=== PATIENT | male | born 1990 | race Caucasian/White ===

== ENCOUNTER 2025-06-01 22:55 | Emergency (ER) | payer SELFPAY ==
--- OUTSIDE RECORDS SUMMARY | 2020-06-21 06:40 | XMS_ITS | Continuity of Care Document ---
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 [address], [id number] [place], [id number], [place]. tel:[phone] Referring Provider: Latosha Costa, [address] [id number] [place], [address]. tel:[phone] OFFICE/OUTPA TIENT VISIT, EST [facility], [address], [place], [id number], [place] tel:[phone] [facility] Severe alcohol use disorderBody mass index (BMI) 25.0-25.9, adultPost-tr aumatic stress disorder, chronicBipol ar disorder 0 Kt Víctor. [address], [id number] [place], [id number], [place]. tel:[phone] Referring Provider: Víctor Meraz, [address] [id number] [place], [address]. tel:[phone] [facility], [address], [place], [id number], [place] tel:[phone] [facility] Severe alcohol use disorder 0 Kt Víctor. [address], [id number] [place], [id number], [place]. tel:[phone] Referring Provider: Víctor Meraz, [address] [id number] [place], [address]. tel:[phone] PSYCH DIAGNOSTIC EVALUATION [facility], [address], [place], [id number], [place] tel:[phone] [facility] Severe alcohol use disorder 0 Oliver Little. [address], [place], [id number], [place]. tel:[phone] Referring Provider: Anabel Boyd, [address], [place], [address]. tel:[phone] [facility], [address], [place], [id number], [place] tel:[phone] [facility] Severe alcohol use disorder 0 [place]. [address], [id number] 0, [place], [id number], [place]. tel:[phone] Referring Provider: Víctor Meraz, [address] [id number] [place], [address]. tel:[phone] [facility], [address], [place], [id number], [place] tel:[phone] [facility] Severe alcohol use disorder 0 [place]. [address], [id number] 0, [place], [id number], [place]. tel:[phone] Referring Provider: Víctor Meraz, [address] [id number] [place], [address]. tel:[phone] OFFICE/OUTPA TIENT VISIT, EST [facility], [address], [place], [id number], [place] tel:[phone] [facility] Body mass index (BMI) 26.0-26.9, adultSevere alcohol use disorderPost -traumatic stress disorder, chronicBipol ar disorderPani c disorder w/ agoraphobia 0 Kt Renee. [address], [id number] 0, [place], [id number], [place]. tel:[phone] Referring Provider: Víctor Meraz, [address] [id number] [place], [address]. tel:[phone] [facility], [address], [place], [id number], [place] tel:[phone] [facility] Severe alcohol use disorder 0 [place]. [address], [id number] 0, [place], [id number], [place]. tel:[phone] Referring Provider: Víctor Meraz, [address] [id number] [place], [address]. tel:[phone] [facility], [address], [place], [id number], [place] tel:[phone] [facility] Severe alcohol use disorder Sep-3 9 Kt Renee. [address], [id number] [place], [id number], [place]. tel:[phone] Referring Provider: Víctor Meraz, [address] [id number] [place], [address]. tel:[phone] [facility], [address], [place], [id number], [place] tel:[phone] [facility] Severe alcohol use disorder 9 Kt Renee. [address], [id number] 0, [place], [id number], [place]. tel:[phone] [facility], [address], [place], [id number], [place] tel:[phone] [facility] Severe alcohol use disorder 9 Kt Renee. [address], [id number] [place], [id number], [place]. tel:[phone] Referring Provider: Víctor Meraz, [address] [id number] [place], [address]. tel:[phone] OFFICE/OUTPA TIENT VISIT, EST [facility], [address], [place], [id number], [place] tel:[phone] [facility] Body mass index (BMI) 31.0-31.9, adultPost-tr aumatic stress disorder, chronicSever e alcohol use disorder 0 9 Kt Renee. [address], [id number] 0[place], [place], [id number], . tel:[phone] Referring Provider: Víctor Kt, [address] [id number] [place], [address]. tel:[phone] [facility], [address], [place], [id number], [place] tel:[phone] [facility] Post-traumat ic stress disorder, chronic 9 Javon Hodge. [address], [place], [id number], [place]. tel:[phone] OFFICE/OUTPA TIENT VISIT, EST [facility], [facility] [address], [id number], [place] tel:[phone] [facility] Bipolar disorderPost -traumatic stress disorder, chronicPanic Disorder 8 Kt Renee. [address], [id number] [facility] [place], [id number], [place]. tel:[phone] Referring Provider: Víctor Kt, [address] [id number] [place], [address]. tel:[phone] [facility], [address], [place], [id number], [place] tel:[phone] [facility] Encounter for dental exam and cleaning w/o abnormal findings 8 Paloma Esteban. [address], [id number] [facility] [place], [id number], [place]. tel:[phone] Referring Provider: Eulalia Dow, [address] [id number] [place], [address]. tel:[phone] PSYTX PT&/FAMILY 60 MINUTES [facility], [address], [place], [id number], [place] tel:[phone] [facility] Posttraumati c Stress Disorder (includes Posttraumati c Stress Disorder for Children 6 Years and Younger)Impu lse control disorderAlco hol use disorder, moderateProb lems in relationship with spouse 8 Javon Hodge. [address] [place], [id number], [place]. tel:[phone] Referring Provider: Ayesha Alejandro, [address] [place], [address]. tel:[phone] [facility], [address] [place], [id number], [place] tel:[phone] [facility] Encounter for dental exam and cleaning w/o abnormal findings 8 Paloma Esteban. [address], [id number] [facility] [place], [id number], [place]. tel:[phone] Referring Provider: Eulalia Dow, [address] [id number] [facility] [place], [address]. tel:[phone] PSYTX PT&/FAMILY 60 MINUTES [facility], [address] [place], [id number], [place] tel:[phone] [facility] Posttraumati c Stress Disorder (includes Posttraumati c Stress Disorder for Children 6 Years and Younger)Impu lse control disorderAlco hol use disorder, moderateProb lems in relationship with spouse 8 Javon Hodge. [address] [place], [id number], [place]. tel:[phone] Referring Provider: Ayesha Alejandro, [address] [place], [address]. tel:[phone] OFFICE/OUTPA TIENT VISIT EST Telehealth [facility], [address] [place], [id number], [place] tel:[phone] [facility] Record Review (chief complaint) Post-traumat ic stress disorderAgor aphobia with panic disorderOthe r bipolar disorder 8 Major Ojeda. [address] [place] [address], [id number] 0, [place], [id number], [place]. tel:[phone] Referring Provider: Rusty Gonsalves, [address] [place] [address] 212 [id number] [place], [address]. [phone] OFFICE/OUTPA TIENT VISIT EST Tele[facility], [address], [place], [place], [id number], [place] tel:[phone] [facility] Post-traumat ic stress disorderAgor aphobia with panic disorderOthe r bipolar disorder Apr-2 8 Major Ojeda. [address] [place] [address] [address], [id number] 0, [place], [place], [id number], [place]. tel:[phone] Referring Provider: Rusty Gonsalves, [address] [place] [address] 212 [id number] [place], [address]. tel: [phone] OFFICE/OUTPA TIENT VISIT, EST [facility], [address], [place], [place], [id number], [place] tel:[phone] [facility] Post-traumat ic stress disorderAgor aphobia with panic disorderOthe r bipolar disorder Dec-0 8 Major Ojeda. [address] [place] [address] [address], [id number] 0, [place], [id number], [place]. tel: [phone] Referring Provider: Rusty Gonsalves, [address] [place] [address] 212 [id number] [place], [address]. tel:[phone] OFFICE/OUTPA TIENT VISIT, EST [facility], [address], [place], [place], [id number], [place] tel:[phone] [facility] New Patient (chief complaint) Body mass index (BMI) 24.0-24.9, adultHeadach eEncounter for adult health check-upPain in left wrist Nov- 8 Chris Perdomo. [address], [id number] 0CH, [place], [place], [id number], [place]. tel:[phone] Referring Provider: Conor Gracerenu, [id number] [place], [address]. tel:[phone] PSYCH DIAGNOSTIC EVALUATION [facility], [facility] [address], [place], [id number], [place] tel:[phone] [facility] Bipolar disorder, current episode manic w/o psychotic features, moderatePost -traumatic stress disorderCann abis use disorder, severe 8 Reid Zhang. [address] [place] [address], Suite [facility], [place], [place], [id number]. tel: [phone] Referring Provider: Vicente Mathews, [address] [place] [address], [place], [address]. tel: [phone] PSYCH DIAG EVAL W/MED SRVCS [facility], [address] [place] [address], [place], [id number], [place] tel:[phone] [facility] Body mass index (BMI) 24.0-24.9, adultPost-tr aumatic stress disorderAgor aphobia with panic disorderOthe r bipolar disorder 8 Major Ojeda. [address] [place] [address] [facility], [id number] [address] [place] [address], [id number], . tel: [phone] Referring Provider: Rusty Gonsalves, [address] [place] [address] [facility] [id number] [place], [address]. tel: [phone] PSYCH DIAGNOSTIC EVALUATION [facility], [address] [place] [address] [address], [place], [id number], [place] tel:[phone] [facility] Unspecified Mental Disorder 8 Reid Zhang. [address] [place] [address], [address] [facility], [place], [place], [id number]. tel: [phone] Referring Provider: Vicente Mathews, [address] [place] [address] [facility], [place], [address]. tel: [phone] PSYCH DIAGNOSTIC EVALUATION [facility], [address] [place], [place] [address], [place], [id number], tel:[phone] [facility] Unspecified Mental Disorder Reid Zhang. [address] [facility], [address] [facility], [place], [place], [id number]. [phone] Referring Provider: Vicente Mathews, [address] [facility] [address], [place], [address]. tel:[phone] Family History Family Member Type Diagnosis Age At Onset Problem (finding) Family history of anxie ty state Maternal aunt Problem (finding) breast cancer Problem (finding) Family history of manic-depressive state Father Problem (finding) hypertension Father Problem (finding) chest wall can cer (Cause Of ) Father Problem (finding) anxiety state Problem (finding) Family history of depre ssion Paternal grandfather Problem (finding) Diabetes mellit us Payers Payer name Insurance type Covered democrat ID Authoriza tion(s) No Information Social History Type Description Quantity Date Captured Comments Sex Male Smoking Status No Information Sexual Orientation Straight or heterosexual Gender Identity Male Chief Complaint And Reason For Visit No Information Reason For Referral Reason For Referral No Information Plan Of Treatment Date Type Action Status Goal Depression screening. Due on due Goal Diabetes screening. Due on J due Goal Td vaccine. Due on due Goal Influenza vaccine. Due on due Goal Tdap. Due on due Goal Lifestyle education regardin g diet completed Goal Td vaccine. Due on due Goal Tdap. Due on due Goal Influenza vaccine. Due on due Goal Depression screening. Due on due Goal Diabetes screening. Due on M due Goal Td vaccine. Due on due Goal Tdap. Due on due Goal Depression screening. Due on due Goal Influenza vaccine. Due on Ma due Goal Diabetes screening. Due on M due Goal Depression screening. Due on due Goal Diabetes screening. Due on A due Goal Tdap. Due on due Goal Influenza vaccine. Due on Ap due Goal Td vaccine. Due on due Goal Depression screening. Due on due Goal Td vaccine. Due on due Goal Influenza vaccine. Due on Ma due Goal Tdap. Due on due Goal Diabetes screening. Due on M due Goal Tdap. Due on due Goal Influenza vaccine. Due on due Goal Td vaccine. Due on due Goal Diabetes screening. Due on due Goal Depression screening. Due on due Goal Lifestyle education regardin g diet completed Goal Diabetes screening. Due on due Goal Td vaccine. Due on due Goal Tdap. Due on due Goal Influenza vaccine. Due on due Goal Depression screening. Due on due Goal Influenza vaccine. Due on due Goal Tdap. Due on due Goal Diabetes screening. Due on due Goal Depression screening. Due on due Goal Td vaccine. Due on due Goal Influenza vaccine. Due on due Goal Td vaccine. Due on due Goal Tdap. Due on due Goal Diabetes screening. Due on D due Goal Depression screening. Due on due Goal Diabetes screening. Due on N due Goal Influenza vaccine. Due on No due Goal Tdap. Due on due Goal Td vaccine. Due on due Goal Depression screening. Due on due Goal Tdap. Due on due Goal Diabetes screening. Due on N due Goal Depression screening. Due on due Goal Influenza vaccine. Due on No due Goal Td vaccine. Due on due [...] Influenza vaccine. Due on No due Goal Tdap. Due on due Goal Tdap. Due on due Goal Influenza vaccine. Due on due Goal Td vaccine. Due on due Goal Depression screening. Due on due Goal Depression screening. [...] Goal Td vaccine. Due on 18 due History Of Present Illness Encounter Date Complaint History Of Prese nt Illness Record Review Review from bhavik rds from emergency department at [facility]. Patient was in the hospital on August 09, 2018 for tooth fracture. He is on numerous medications which she has not told this office about. Currently taking penicillin 500 mg 1 by mouth 4 times a day, oxycodone 5 mg by mouth every 6 hours, [place] 5/325 mg every 6 hours, Fioricet 50/325/40 [...] No Information Instructions Date Instruction Additional Infor mation Lifestyle education regarding di et Related to Body mass index (BMI) 25.0-25.9, adult Giving encouragement to exercise Related to Body mass index (BMI) 25.0-25.9, adult Lifestyle education regarding di et Related [...]
[2025-06-01 23:04] VITALS: BP 129/89; PULSE 68; RESP 18; TEMP 37; O2SAT 96; BMI 26.1
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
[2025-06-01] MEDS: ondansetron 2 mg/ML SDV 2 mL 4 MG IVP (23:22)
[2025-06-01] MEDS: mupirocin oint 22 gm 1 APPLIC TOPICAL (23:22)
[2025-06-01] MEDS: HYDROmorphone 0.5 MG/0.5 ML INJ 1 MG IVP (23:23)
[2025-06-01] MEDS: iohexol 350 mg/mL 500 mL Btl (per mL) IV (23:39)
[2025-06-01 23:43] VITALS: BP 130/83; PULSE 59; RESP 16; O2SAT 95
[2025-06-01 23:46] LABS: Hematocrit 40.3 % (37-53); Hemoglobin 14.30 g/dL (11.27-16.99); Mean Corpuscular HGB Conc 35.5 g/dL (30-55); Mean Corpuscular Hemoglobin 33.6 pg (27-33); Mean Corpuscular Volume 94.6 fl (82-101); Nucleated Red Blood Cells % 0 %; Platelet Count 350 10^3/cmm (157-399); Red Blood Count 4.26 10^6/uL (3.85-5.65); White Blood Count 7.18 10^3/uL (3.29-11.43)
[2025-06-02 00:01] LABS: Alanine Aminotransferase 18 U/L (0-41); Albumin Level 4.8 g/dL (3.5-5.2); Alcohol Level 159 mg/dL (0-10); Alkaline Phosphatase 60 U/L (40-130); Anion Gap 15.3 (5-19); Aspartate Amino Transferase 21 U/L (0-40); Blood Urea Nitrogen 11 mg/dL (6-20); Calcium 8.9 mg/dL (8.5-10.5); Carbon Dioxide 26 mmol/L (22-29); Chloride 105 mmol/L (98-107); Creatinine Clr Calc Pharmacy 166.0490; Globulin 2.9 g/dL (1.3-4.6); Glucose 110 mg/dL (65-115); Osmolality Calculated 296 mOsm/kg (285-295); Potassium 3.3 mmol/L (3.5-5.1); Sodium 143 mmol/L (136-145); Total Protein 7.7 g/dL (6.6-8.7)
[2025-06-02 00:30] VITALS: PULSE 57; RESP 16; O2SAT 97
[2025-06-02] MEDS: HYDROmorphone 0.5 MG/0.5 ML INJ 1 MG IVP (00:59)
--- NOTE | 2025-06-02 01:00 | PC.NURSE ---
wounds cleansed with sterile water and betadine. right elbow dressed with bactriban and non adherent dressing. bandaged with coban. right knee cleansed and dressed with nonadherent and coban. patient tolerated well.
[2025-06-02 02:17] VITALS: BP 130/87; PULSE 60; RESP 16; O2SAT 98
== END 2025-06-02 01:55 | disposition home or self-care (01) ==
PROVIDERS: Emergency Provider Emergency Medicine; PCP Nurse Practitioner Family
DX: S80.01XA Contusion of right knee, initial encounter (principal); S50.01XA Contusion of right elbow, initial encounter; S30.0XXA Contusion of lower back and pelvis, initial encounter; V89.9XXA Person injured in unspecified vehicle accident, initial encounter
CPT/HCPCS: 36415; 70450; 71260; 72125; 73080; 73562; 74177; 80053; 80307; 85025; 96374; 96375; 96376; 99285; J1171; J2405; J9999

== ENCOUNTER 2025-06-05 09:20 | Emergency (ER) | payer SELFPAY ==
[2025-06-05 09:22] VITALS: BP 128/86; PULSE 68; TEMP 36.5; O2SAT 100; BMI 26.1
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
[2025-06-05 10:50] LABS: Add Urine Microscopic? NO
[2025-06-05 10:52] LABS: Hematocrit 43.3 % (37-53); Hemoglobin 15.10 g/dL (11.27-16.99); Mean Corpuscular HGB Conc 34.9 g/dL (30-55); Mean Corpuscular Hemoglobin 33.3 pg (27-33); Mean Corpuscular Volume 95.6 fl (82-101); Nucleated Red Blood Cells % 0 %; Platelet Count 309 10^3/cmm (157-399); Red Blood Count 4.53 10^6/uL (3.85-5.65); White Blood Count 4.84 10^3/uL (3.29-11.43)
[2025-06-05 10:55] LABS: Glucose Urine UA Negative (Normal); Nitrate Urine Negative (Negative); Specific Gravity, Urine 1.013 (1.005-1.030)
[2025-06-05 11:06] LABS: Charge for UA Resulting for Rev
[2025-06-05 11:09] LABS: Alanine Aminotransferase 15 U/L (0-41); Albumin Level 4.5 g/dL (3.5-5.2); Alkaline Phosphatase 72 U/L (40-130); Anion Gap 13.7 (5-19); Aspartate Amino Transferase 23 U/L (0-40); Blood Urea Nitrogen 8 mg/dL (6-20); Calcium 9.3 mg/dL (8.5-10.5); Carbon Dioxide 29 mmol/L (22-29); Chloride 99 mmol/L (98-107); Creatinine Clr Calc Pharmacy 142.3277; Globulin 3.1 g/dL (1.3-4.6); Glucose 114 mg/dL (65-115); Lipase 14 U/L (13-60); Osmolality Calculated 285 mOsm/kg (285-295); Potassium 3.7 mmol/L (3.5-5.1); Sodium 138 mmol/L (136-145); Total Protein 7.6 g/dL (6.6-8.7)
[2025-06-05 11:32] VITALS: PULSE 65; O2SAT 99
== END 2025-06-05 11:33 | disposition home or self-care (01) ==
PROVIDERS: Emergency Provider Family Medicine; PCP Nurse Practitioner Family
DX: M79.10 Myalgia, unspecified site (principal); V89.2XXA Person injured in unspecified motor-vehicle accident, traffic, initial encounter
CPT/HCPCS: 36415; 80053; 81003; 83690; 85025; 99283; J9999

== ENCOUNTER 2025-07-15 13:34 | Emergency (ER) | payer SELFPAY ==
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
[2025-07-15] VITALS (7 sets, daily range): BP systolic 118–124; BP diastolic 75–91; PULSE 69–76; RESP 17; TEMP 36.7; O2SAT 94–100
--- OUTSIDE RECORDS SUMMARY | 2025-07-15 13:37 | XMS_ITS | Clinical Summary ---
Author Organization [facility] Address [address] Attn: Epic Prelude ADT TACOS HAAS [address] Care Team Providers Care Arc And Gas Welder Name Role Phone Unavailable Primary Care Provider [...] mouth daily. Active naloxone (NARCAN) 4 mg/spray [place], Non-Aerosol EMERGENCY USE ONLY: Administer 1 spray [...] Encounters Date Type Department Care Team Description 06/26/2025 External Device Data [facility] ABSTRACTION Provider, Abstract 06/26/2025 External Device Data [facility] ABSTRACTION Provider, Abstract 06/26/2025 External Device Data [facility] ABSTRACTION Provider, Abstract 06/19/2025 External Device Data [facility] ABSTRACTION Provider, Abstract 06/19/2025 External Device Data [facility] ABSTRACTION Provider, Abstract 06/05/2025 External Device Data [facility] ABSTRACTION Provider, Abstract 05/08/2025 External Device Data [facility] ABSTRACTION Provider, [...] = 0.6 oz pur e alcohol) occasional Feeling Safe Answer Date Recorded Are you in a relationship wi th someone who hurts you emotionally and/or physically? No 11/24/2024 Food Insecurity Answer Date Recorded Patient needs follow up regardin 02/16/2025 Transportation Needs Answer Date Record ed Patient needs follow up regardin 02/16/2025 Housing Stability Answer Date Recorded Social/Environmental Concerns No concerns Utility Needs Answer Date Recorded Patient needs follow up regardin 02/16/2025 Sex and Gender Information Value Date Recorded Sex Assigned at Male 10/02/2024 4:08 PM CNC SUPERVISOR Legal Sex Male 3:13 AM CNC SUPERVISOR Gender Identity Male 10/02/2024 4:08 PM CNC SUPERVISOR Sexual Orientation Straight 10/02/2024 4: 08 PM CNC SUPERVISOR Last Filed Vital Signs Vital Sign Reading Time Taken Comments Blood Pressure 135/98 11/24/2024 5:56 PM CNC SUPERVISOR Pulse 72 11/24/2024 5:56 PM CNC SUPERVISOR Temperature 36.4 C (97.5 F) 11/24/2024 5:56 PM CNC SUPERVISOR Respiratory Rate 18 11/24/2024 5:56 PM CNC SUPERVISOR Oxygen Saturation 100% 11/24/2024 5:56 PM CNC SUPERVISOR Inhaled Oxygen Concentration - - Weight 82.2 kg (181 lb 3.2 oz) 11/24/2024 3:39 P M CNC SUPERVISOR Height 167.6 cm (5' 6 ) 11/24/2024 3:39 PM CNC SUPERVISOR Body Mass Index 29.25 11/24/2024 3:39 PM CNC SUPERVISOR Plan of Treatment Health Maintenance Due Date Last Done Comments Pre-Diabetes and Diabetes Screening 1990 DTAP/TDAP/TD VACCINES (5 - Tdap) 04/14/2005 04/13/2005, 02/05/1996, 01/16/1992, Additional history exists HEPATITIS B VACCINES (1 of 3 - 19+ 3-dose series) 2009 HPV VACCINES (1 - 3-dose SCD M series) 2017 INFLUENZA VACCINE (#1) 2025 Advance Directives For more information, please contact: [phone] * Full Code (Latest Code Status on File) Date Activated Date Inactivated Comments 10/02/2024 8:16 PM 10/03/2024 12:11 PM
[2025-07-15 14:00] LABS: Hematocrit 47.2 % (37-53); Hemoglobin 16.30 g/dL (11.27-16.99); Mean Corpuscular HGB Conc 34.5 g/dL (30-55); Mean Corpuscular Hemoglobin 33.3 pg (27-33); Mean Corpuscular Volume 96.3 fl (82-101); Nucleated Red Blood Cells % 0 %; Platelet Count 292 10^3/cmm (157-399); Red Blood Count 4.90 10^6/uL (3.85-5.65); White Blood Count 8.00 10^3/uL (3.29-11.43)
--- NOTE | 2025-07-15 14:03 | ED_ITS ---
HPI - Abdominal Pain 2 General: Chief Complaint: Abdominal Pain Stated Complaint: abd pain, n/v/f, black stool Time Seen by Provider: 07/15/25 13:37 Source: patient Mode of arrival: ambulatory Limitations: no limitations History of Present Illness: Patient is a 35-year-old male who presents to ED today with a complaint of upper quadrant abdominal pain beginning fairly abruptly around 430 this morning. Patient states he had awoken to get ready for work when he began noticing pain. He initially thought he might need to defecate so attempted this and noted his stool was black. He states he did have another black stool while here in the emergency department. He had taken some Pepto-Bismol prior to arrival here. Previous abdominal surgeries include umbilical hernia repair several years ago. Patient has not had any vomiting. He does feel nauseous and diaphoretic when pain becomes severe. No history of gastric ulcers. MD elicited complaint: abdominal pain Pertinent past history: none Onset (ago): hour(s) Pain Consistency: constant Location: RUQ Quality: stabbing and sharp Radiation: none Migration to: no migration Exacerbating factors: nothing Relieving factors: nothing Associated Symptoms: Reports melena and nausea; Denies chills, dysuria, fever(s), heartburn, hematemesis and vomiting Related Data Home Medications ?Medication ?Instructions ?Recorded ?Confirmed venlafaxine 37.5 mg tablet 37.5 mg PO DAILY 07/15/25 0 07/15/25 Previous Rx's ?Medication ?Instructions ?Recorded pantoprazole 40 mg tablet,delayed See Rx Instructions .Route 07/15/25 release (Protonix) .COMPLEX 4 weeks #28 tabs sucralfate 1 gram tablet (Carafate) 1 g PO TID 2 weeks #42 tabs 07/15/25 Allergies Allergy/AdvReac Type Severity Reaction Status Date / Time cephalexin (From Keflex) Allergy Unknown Verified 07/15/25 13:42 ketorolac (From Toradol) Allergy Unknown Verified 07/15/25 13:42 sumatriptan (From Imitrex) Allergy Unknown Verified 07/15/25 13:42 tramadol Allergy Unknown Verified 07/15/25 13:42 Review of Systems 2 Const: Reports: other (states he starts sweating when pain gets severe); Denies: fever(s), chills, body aches, fatigue or malaise Card: Denies: chest pain Resp: Denies: dyspnea GI: Reports: abdominal pain, nausea and melena; Denies: vomiting, hematemesis or heartburn : Denies: flank pain, difficulty urinating, dysuria, urinary frequency, urinary urgency or urinary hesitancy Musc: Denies: neck pain, back pain, extremity pain, extremity swelling, joint pain, joint swelling or joint redness Skin/Breast: Denies: rash Neuro: Denies: headache(s), numbness in extremities, weakness in extremities or sensory changes Physical Exam 2 Const: COMMON NORMALS: average body habitus, patient oriented x3, no limitations, healthy appearing, alert and well nourished GENERAL APPEARANCE: cooperative and in distress (appears uncomfortable secondary to pain) Eye: COMMON NORMALS: no scleral icterus Resp: COMMON NORMALS: normal respiratory effort and clear to auscultation bilaterally AUSCULTATION: clear to auscultation bilaterally Cardio: COMMON NORMALS: regular rate and regular rhythm RATE: regular rate RHYTHM: regular rhythm GI: COMMON NORMALS: Soft to palpation, No hepatosplenomegaly present and no masses INSPECTION: Yes normal to inspection AUSCULTATION: Yes normoactive bowel sounds PALPATION: Yes Soft to palpation, Yes Tenderness to palpation present (GI) (RUQ, epigastric), Yes Guarding due to palpation present (GI), No Rigid due to palpation and Yes No hepatosplenomegaly present : COMMON NORMALS: Yes no CVA tenderness BLADDER/KIDNEY EXAM: Yes no CVA tenderness Back/Pelvis: COMMON NORMALS: no CVA tenderness, thoracic and lumbar spine normal to inspection and no thoracic nor lumbar tenderness Extremity: COMMON NORMALS: capillary refill normal, no clubbing, cyanosis or edema, no calf tenderness and no pedal edema GENERAL: Yes normal exam except as noted Neuro: [place] COMA SCALE: document GCS findings [place] coma scale eye opening: Spontaneous [place] coma scale verbal response: Orientated [place] coma scale motor response: Obey commands [place] coma scale total score: 15 COMMON NORMALS: patient oriented x3, moves all extremities, no focal motor deficits and no sensory deficits noted SENSORIUM/ORIENTATION: Yes alert Skin: COMMON NORMALS: no rashes or lesions noted GENERAL SKIN EXAM: no rashes or lesions noted Course 2 Vital Signs: Vital signs: Vital Signs Temperature 98.1 F 07/15/25 13:36 Pulse Rate 76 07/15/25 13:36 Respiratory Rate 17 07/15/25 14:17 Blood Pressure 121/91 07/15/25 15:44 Pulse Oximetry 99 07/15/25 15:44 Oxygen Delivery Me thod Room Air 07/15/25 15:15 MDM - Abdominal Pain Medical Decision Making Patient's vital signs are stable. His blood work is unremarkable. White count is normal. LFTs/lipase are normal. UA does not appear infected. CT scan overall unremarkable-there was 1 small area to his proximal jejunum that radiologist stated could represent a localized enteritis, ileus, or normal variation. Nothing to suggest obstruction. Patient is not vomiting. He is passing stool and gas. He had declined INDY to check for blood. He was not able to give a stool sample here. He did get some relief following a GI cocktail. Will place him on Carafate/PPI and recommend a bland liquid diet with advancement as tolerated. Will get him set up with primary care for further evaluation. He may require referral to general surgery if he does not improve with conservative treatment/prescription medications. Return ED precautions given. Differential Diagnosis Likely abdominal pain Medical Records I reviewed the patient's medical records. Lab Data I reviewed the patient's lab results. 07/15/25 13:54 07/15/25 13:54 Labs/Radiology: Radiology Impressions Abdomen/Pelvis CT 07/15/25 14:20 IMPRESSION: 1. Single mildly dilated, gas-filled loop of proximal jejunum in the left upper quadrant without other evidence for obstruction. Finding could represent localized enteritis, ileus or normal variation. Continued epigastric pain should be followed with abdominal radiograph assessment to further exclude developing obstruction. 2. No other acute abnormality in the abdomen or pelvis. Laboratory Results WBC 8.00 10^3/uL (3.29-11.43) 07/15/25 13:54 RBC 4.90 10^6/uL (3.85-5.65) 07/15/25 13:54 Hgb 16.30 g/dL (11.27-16.99) 07/15/25 13:54 Hct 47.2 % (37-53) 07/15/25 13:54 MCV 96.3 fl (82-101) 07/15/25 13:54 MCH 33.3 pg (27-33) H 07/15/25 13:54 MCHC 34.5 g/dL (30-55) 07/15/25 13:54 RDW 12.4 % (12.1-15.1) 07/15/25 13:54 Plt Count 292 10^3/cmm (157-399) 07/15/25 13:54 MPV 8.1 fL (7.4-10.4) 07/15/25 13:54 Neut % (Auto) 76.5 % 07/15/25 13:54 Lymph % (Auto) 13.0 % 07/15/25 13:54 [place] % (Auto) 9.4 % 07/15/25 13:54 Eos % (Auto) 0.3 % 07/15/25 13:54 Baso % (Auto) 0.4 % 07/15/25 13:54 Neut # (Auto) 6.13 10^3/uL (1.8-7.7) 07/15/25 13:54 Lymph # (Auto) 1.0 10^3/uL (0.8-4.8) 07/15/25 13:54 [place] # (Auto) 0.8 10^3/uL (0.2-0.9) 07/15/25 13:54 Eos # (Auto) 0.0 10^3/uL (0.0-0.8) 07/15/25 13:54 Baso # (Auto) 0.0 10^3/uL (0.0-0.1) 07/15/25 13:54 Nucleated RBC % (auto) 0 % 07/15/25 13:54 Nucleated RBCs # 0.0 /100WBC 07/15/25 13:54 Sodium 135 mmol/L (136-145) L 07/15/25 13:54 Potassium 3.8 mmol/L (3.5-5.1) 07/15/25 13:54 Chloride 100 mmol/L (98-107) 07/15/25 13:54 Carbon Dioxide 26 mmol/L (22-29) 07/15/25 13:54 Anion Gap 12.8 (5-19) 07/15/25 13:54 BUN 11 mg/dL (6-20) 07/15/25 13:54 Creatinine 0.7 mg/dL (0.7-1.2) 07/15/25 13:54 GFR Calculation 128.3 mL/min (90-130) 07/15/25 13:54 Glucose 91 mg/dL (65-115) 07/15/25 13:54 Calculated Osmolality 279 mOsm/kg (285-295) L 07/15/25 13:54 Calcium 9.3 mg/dL (8.5-10.5) 07/15/25 13:54 Total Bilirubin 0.7 mg/dL (0.15-1.2) 07/15/25 13:54 AST 16 U/L (0-40) 07/15/25 13:54 ALT 11 U/L (0-41) 07/15/25 13:54 Alkaline Phosphatase 64 U/L (40-130) 07/15/25 13:54 Total Protein 7.8 g/dL (6.6-8.7) 07/15/25 13:54 Albumin 4.5 g/dL (3.5-5.2) 07/15/25 13:54 Globulin 3.3 g/dL (1.3-4.6) 07/15/25 13:54 Lipase 19 U/L (13-60) 07/15/25 13:54 Urine Color Dark yellow (Yellow) A 07/15/25 13:59 Urine Appearance Clear (CLEAR) 07/15/25 13:59 Urine pH 5.5 (5-7) 07/15/25 13:59 Ur Specific [place] 1.032 (1.005-1.030) H 07/15/25 13:59 Urine Protein Trace (Negative) A 07/15/25 13:59 Urine Glucose (UA) Negative (Normal) 07/15/25 13:59 Urine Ketones Trace (Negative) 07/15/25 13:59 Urine Blood Negative (Negative) 07/15/25 13:59 Urine Nitrate Negative (Negative) 07/15/25 13:59 Urine Bilirubin Negative (Negative) 07/15/25 13:59 Urine Urobilinogen 1.0 mg/dL (Negative) 07/15/25 13:59 Ur Leukocyte Esterase Negative (Negative) 07/15/25 13:59 Urine RBC 0-2 /hpf (0-2) 07/15/25 13:59 Urine WBC 0-5 /hpf (0-5) 07/15/25 13:59 Ur Squamous Epith Cells 0-5 /hpf (0-5) 07/15/25 13:59 Calcium Oxalate Crystal 15-25 /hpf H 07/15/25 13:59 Amorphous Sediment Not Reportable 07/15/25 13:59 Urine Bacteria None seen /hpf (NONE) 07/15/25 13:59 Hyaline Casts 0.40 /lpf 07/15/25 13:59 Urine Mucus 2+ /hpf 07/15/25 13:59 All radiology interpretation(s) finalized by discharge Discharge Plan Discharge Patient Disposition: Home Clinical Impression: Acute upper abdominal pain Condition: Stable Prescriptions: New sucralfate [Carafate] 1 gram tablet 1 g PO TID 14 Days Qty: 42 0RF pantoprazole [Protonix] 40 mg tablet,delayed release (DR/EC) See Rx Instructions .ROUTE .COMPLEX 28 Days Qty: 28 0RF Rx Instructions: 40 mg orally; Take 1 tab BID x 7 days then 1 tab daily thereafter Discontinued loperamide [Anti-Diarrhea] 2 mg Tablet 2 mg PO QID PRN (Reason: Diarrhea) bismuth subsalicylate [Pepto-Bismol] 262 mg/15 mL Suspension 524 mg PO QID hydrocodone-acetaminophen 5-325 mg tablet 1 tab PO Q8H PRN (Reason: pain) Qty: 7 0RF No Action venlafaxine 37.5 mg tablet 37.5 mg PO DAILY Discharge Orders: Discharge ED (Routine); Ordered 07/15/25 Ordered By: Elyssa Vega Referrals: Charlene Capellan MD [Primary Care Provider] Patient Instructions: Abdominal Pain (ED), Patient Portal & Britney Instructions Activity Restrictions/Additional Instructions: As we discussed, your blood work here was unremarkable. CT scan showing a possible area of enteritis (inflammation) vs ileus (slowing of your intestine) but emergent findings. We discussed doing a bland liquid diet over the next 48 hours and slowly advancing as tolerated. You may try the prescription medications to see if this helps with discomfort. I will place a case management referral to get you set up with a primary care provider for further evaluation in case symptoms persist. Print Language: Nigerian Coding Level of Care Code ED Regrinder for Marguerite Arreaga
[2025-07-15] MEDS: ondansetron 2 mg/ML SDV 2 mL 4 MG IVP (14:17)
[2025-07-15] MEDS: morphine 4 mg/mL SDV 1 mL IVP (14:17)
[2025-07-15 14:18] LABS: Alanine Aminotransferase 11 U/L (0-41); Albumin Level 4.5 g/dL (3.5-5.2); Alkaline Phosphatase 64 U/L (40-130); Anion Gap 12.8 (5-19); Aspartate Amino Transferase 16 U/L (0-40); Blood Urea Nitrogen 11 mg/dL (6-20); Calcium 9.3 mg/dL (8.5-10.5); Carbon Dioxide 26 mmol/L (22-29); Chloride 100 mmol/L (98-107); Creatinine Clr Calc Pharmacy 140.9850; Globulin 3.3 g/dL (1.3-4.6); Glucose 91 mg/dL (65-115); Lipase 19 U/L (13-60); Osmolality Calculated 279 mOsm/kg (285-295); Potassium 3.8 mmol/L (3.5-5.1); Sodium 135 mmol/L (136-145); Total Protein 7.8 g/dL (6.6-8.7)
--- NOTE | 2025-07-15 14:20 | CTR_ITS ---
PROCEDURE INFORMATION: Exam: CT Abdomen And Pelvis With Contrast Exam date and time: 07/15/2025 2:31 PM Age: 35 years old Clinical indication: Abdominal pain; Epigastric; Additional info: Upper abdominal pain TECHNIQUE: Imaging protocol: Computed tomography of the abdomen and pelvis with contrast. Radiation optimization: All CT scans at this facility use at least one of these dose optimization techniques: automated exposure control; mA and/or kV adjustment per patient size (includes targeted exams where dose is matched to clinical indication); or iterative reconstruction. Contrast material: OMNI 350; Contrast volume: 100 ml; Contrast route: INTRAVENOUS (IV); COMPARISON: CT chest abdpel w/*[id number] 06/01/2025 11:42 PM RADIATION DOSE METRICS: Total DLP (mGy-cm): 405.92 FINDINGS: Lungs: 3 mm right middle lobe and lingular nodules, requiring no follow-up. Liver: The liver is normal. No mass. Gallbladder and biliary ducts: The gallbladder is normal. There is no evidence of biliary ductal dilation. Pancreas: The pancreas is normal. No mass. Spleen: The spleen is normal. Adrenal glands: The adrenal glands are normal. Kidneys and ureters: No renal mass or hydronephrosis. Stomach and bowel: A single loop of proximal jejunum is mildly dilated with gas. No evidence for transition point in the small bowel to suggest bowel obstruction. No other bowel dilatation. No pericolonic inflammatory changes. Appendix: Normal appendix. Intraperitoneal space: No free intraperitoneal fluid or gas. Vasculature: Aortic caliber is normal. Lymph nodes: No lymph node enlargement. Urinary bladder: Bladder is collapsed, but is otherwise unremarkable. Reproductive: Visualized portions of the male reproductive tract are unremarkable, though routine CT is limited in this regard. Bones/joints: Unremarkable. No acute fracture. Soft tissues: Unremarkable. CT/CT abdomen pelvis w con* [id number] IMPRESSION: 1. Single mildly dilated, gas-filled loop of proximal jejunum in the left upper quadrant without other evidence for obstruction. Finding could represent localized enteritis, ileus or normal variation. Continued epigastric pain should be followed with abdominal radiograph assessment to further exclude developing obstruction. 2. No other acute abnormality in the abdomen or pelvis.
[2025-07-15] MEDS: lidocaine 2% viscous 15 ML, aluminum-mag hydrox-simethicon 30 ML, sucralfate oral liq 1 GM PO (14:24)
[2025-07-15 14:32] LABS: Glucose Urine UA Negative (Normal); Nitrate Urine Negative (Negative)
[2025-07-15] MEDS: iohexol 350 mg/mL 500 mL Btl (per mL) IV (14:35)
[2025-07-15 14:37] LABS: Add Urine Microscopic? YES
[2025-07-15 14:49] LABS: Specific Gravity, Urine 1.032 (1.005-1.030); UA Slide Review UA Slide Review Perf
[2025-07-15] MEDS: fentaNYL 50 mcg/mL INJ 2mL IVP (16:17)
--- NOTE | 2025-07-16 07:36 | DCPLANNER ---
Addendum entered by Ariella Ramos 07/16/25 07:36: and general surgery for er f/u Original Note: messaged mesfin to establish PCP
== END 2025-07-15 16:23 | disposition home or self-care (01) ==
PROVIDERS: Emergency Provider Physician Assistant; PCP Nurse Practitioner Family
DX: R10.10 Upper abdominal pain, unspecified (principal)
CPT/HCPCS: 36415; 74177; 80053; 81001; 83690; 85025; 96374; 96375; 99285; J2270; J2405; J3010; J7030; J9999

== ENCOUNTER 2025-07-16 12:55 | Emergency (ER) | payer SELFPAY ==
--- OUTSIDE RECORDS SUMMARY | 2020-06-21 06:40 | XMS_ITS | Continuity of Care Document ---
Author Organization [facility] Address [address] [address] Phone Care Team Providers Care Cutting And Creasing Press Operator Name Role Phone Ocstatim MATHEW Latosha Unavailable Unavailable Allergies, Adverse Reactions, [...] [facility], [address] [facility], [id number], [place] tel:[phone] [facility] [place] Encounter for dental exam and cleaning w/o abnormal findings Myriam Reina. [address], [id number] [place], [id number], [place]. tel:[phone] Referring Provider: Latosha Costa, [address] [id number] [place], [address]. tel:[phone] OFFICE/OUTPA TIENT VISIT, EST [facility], [address], [place], [id number], [place] tel:[phone] [facility] Severe alcohol use disorderBody mass index (BMI) 25.0-25.9, adultPost-tr aumatic stress disorder, chronicBipol ar disorder 0 Kt Víctor. [address], [id number] [place], [id number], [place]. tel:[phone] Referring Provider: Víctor Meraz, [address] [id number] [place], [address]. tel:[phone] [facility], [address], [place], [id number], [place] tel:[phone] [facility] Severe alcohol use disorder 0 Kt Víctor. [address], [id number] [place], [id number], [place]. tel:[phone] Referring Provider: Víctor Meraz, [address] [id number] [place], [address]. tel:[phone] PSYCH DIAGNOSTIC EVALUATION [facility], [address], [place], [id number], [place] tel:[phone] [facility] Severe alcohol use disorder 0 Oliver Little. [address], [place], [id number], [place]. tel:[phone] Referring Provider: Anabel Boyd, [address], [place], [address]. tel:[phone] [facility], [address], [place], [id number], [place] tel:[phone] [facility] Severe alcohol use disorder 0 Ktrigo Renee. [address], [id number] 0, [place], [id number], [place]. tel:[phone] Referring Provider: Víctor Meraz, [address] [id number] [place], [address]. tel:[phone] [facility], [address], [place], [id number], [place] tel:[phone] [facility] Severe alcohol use disorder 0 Stowellrigo Renee. [address], [id number] 0, [place], [id number], [place]. tel:[phone] Referring Provider: Víctor Meraz, [address] [id number] [place], [address]. tel:[phone] OFFICE/OUTPA TIENT VISIT, EST [facility], [address], [place], [id number], [place] tel:[phone] [facility] Body mass index (BMI) 26.0-26.9, adultSevere alcohol use disorderPost -traumatic stress disorder, chronicBipol ar disorderPani c disorder w/ agoraphobia 0 Kt Renee. [address], [id number] 0, [place], [id number], [place]. tel:[phone] Referring Provider: Víctor Meraz, [address] [id number] [place], [address]. tel:[phone] [facility], [address], [place], [id number], [place] tel:[phone] [facility] Severe alcohol use disorder 0 Ktmalissa Renee. [address], [id number] 0, [place], [id number], [place]. tel:[phone] Referring Provider: Víctor Meraz, [address] [id number] [place], [address]. tel:[phone] [facility], [address], [place], [id number], [place] tel:[phone] [facility] Severe alcohol use disorder Sep-3 9 Kt Renee. [address], [id number] [place], [id number], [place]. tel:[phone] Referring Provider: Víctor Meraz, [address] [id number] [place], [address]. tel:[phone] [facility], [address], [place], [id number], [place] tel:[phone] [facility] Severe alcohol use disorder 9 Kt Renee. [address], [id number] 0, [place], [id number], [place]. tel:[phone] [facility], [address], [place], [id number], [place] tel:[phone] [facility] Severe alcohol use disorder 9 Kt Renee. [address], [id number] [place], [id number], [place]. tel:[phone] Referring Provider: Víctor Meraz, [address] [id number] [place], [address]. tel:[phone] OFFICE/OUTPA TIENT VISIT, EST [facility], [address], [place], [id number], [place] tel:[phone] [facility] Body mass index (BMI) 31.0-31.9, adultPost-tr aumatic stress disorder, chronicSever e alcohol use disorder 0 9 Kt Renee. [address], [id number] 0CH, [place], [id number], . tel:[phone] Referring Provider: Víctor Kt, [address] [id number] [place], [address]. tel:[phone] [facility], [address], [place], [id number], [place] tel:[phone] [facility] Post-traumat ic stress disorder, chronic 9 Javon Hodge. [address], [place], [id number], [place]. tel:[phone] OFFICE/OUTPA TIENT VISIT, EST [facility], [facility] [address] [place], [id number], [place] tel:[phone] [facility] Bipolar disorderPost -traumatic stress disorder, chronicPanic Disorder 8 Kt Renee. [address], [id number] [facility] [place] [id number], [place]. tel:[phone] Referring Provider: Víctor Kt, [address] [id number] [place], [address]. tel:[phone] [facility], [address], [place], [id number], [place] tel:[phone] [facility] Encounter for dental exam and cleaning w/o abnormal findings 8 Paloma Esteban. [address], [id number] [facility] [place], [id number], [place]. tel:[phone] Referring Provider: Eulalia Dow, [address] [id number] [place], [address]. tel:[phone] PSYTX PT&/FAMILY 60 MINUTES [facility], [address], [place], [id number], [place] tel:[phone] [facility] Posttraumati c Stress Disorder (includes Posttraumati c Stress Disorder for Children 6 Years and Younger)Impu lse control disorderAlco hol use disorder, moderateProb lems in relationship with spouse 8 Javon Hodge. [address] [place], [id number], [place]. tel:[phone] Referring Provider: Ayesha Alejandro, [address] [place], [address]. tel:[phone] [facility], [address] [place], [id number], [place] tel:[phone] [facility] Encounter for dental exam and cleaning w/o abnormal findings 8 Paloma Esteban. [address], [id number] [facility] [place], [id number], [place]. tel:[phone] Referring Provider: Eulalia Dow, [address] [id number] [facility] [place], [address]. tel:[phone] PSYTX PT&/FAMILY 60 MINUTES [facility], [address] [place], [id number], [place] tel:[phone] [facility] Posttraumati c Stress Disorder (includes Posttraumati c Stress Disorder for Children 6 Years and Younger)Impu lse control disorderAlco hol use disorder, moderateProb lems in relationship with spouse 8 Javon Hodge. [address] [place], [id number], [place]. tel:[phone] Referring Provider: Ayesha Alejandro, [address] [place], [address]. tel:[phone] OFFICE/OUTPA TIENT VISIT EST Telehealth [facility], [address] [place], [id number], [place] tel:[phone] [facility] Record Review (chief complaint) Post-traumat ic stress disorderAgor aphobia with panic disorderOthe r bipolar disorder 8 Major Ojeda. [address] [place] [address], [id number] 0, [place], [place], [id number], [place]. tel:[phone] Referring Provider: Rusty Gonsalves, [address] [place] [address] 212 [id number] [place], [address]. [phone] OFFICE/OUTPA TIENT VISIT EST Telehealth [facility], [address], [place], [place], [id number], [place] tel:[phone] [facility] Post-traumat ic stress disorderAgor aphobia with panic disorderOthe r bipolar disorder Apr-2 8 Major Ojeda. [address] [place] [address] [address], [id number] 0, [place], [id number], [place]. tel:[phone] Referring Provider: Rusty Gonsalves, [address] [place] [address] 212 [id number] [place], [address]. tel: [phone] OFFICE/OUTPA TIENT VISIT, EST [facility], [address], [place], [id number], [place] tel:[phone] [facility] Post-traumat ic stress disorderAgor aphobia with panic disorderOthe r bipolar disorder Dec-0 8 Major Ojeda. [address] [place] [address] [address], [id number] 0, [place], [place], [id number], [place]. tel: [phone] Referring Provider: Rusty Gonsalves, [address] [place] [address] 212 [id number] [place], [address]. tel:[phone] OFFICE/OUTPA TIENT VISIT, EST [facility], [address], [place], [id number], [place] tel:[phone] [facility] New Patient (chief complaint) Body mass index (BMI) 24.0-24.9, adultHeadach eEncounter for adult health check-upPain in left wrist Nov- 8 Chris Perdomo. [address], [id number] 0CH, [place], [place], [id number], [place]. tel:[phone] Referring Provider: Conor Gracerenu, [address] [id number] [place], [address]. tel:[phone] PSYCH DIAGNOSTIC EVALUATION [facility], [facility] [address], [place], [id number], [place] tel:[phone] [facility] Bipolar disorder, current episode manic w/o psychotic features, moderatePost -traumatic stress disorderCann abis use disorder, severe 8 Reid Zhang. [address] [place] [address], [address] [facility], [place], [place], [id number]. tel: [phone] Referring Provider: Vicente Mathews, [address] [place] [address], [place], [address]. tel: [phone] PSYCH DIAG EVAL W/MED SRVCS [facility], [address] [place] [address], [place], [id number], [place] tel:[phone] [facility] Body mass index (BMI) 24.0-24.9, adultPost-tr aumatic stress disorderAgor aphobia with panic disorderOthe r bipolar disorder 8 Major Ojeda. [address] [place] [address] [facility], [id number] [address] [place] [address], [id number], . tel: [phone] Referring Provider: Rusty Gonsalves, [address] [place] [address] [facility] [id number] [place], [address]. tel: [phone] PSYCH DIAGNOSTIC EVALUATION [facility], [address] [place] [address] [address], [place], [id number], [place] tel:[phone] [facility] Unspecified Mental Disorder 8 Reid Zhang. [address] [place] [address], [address] [facility], [place], [place], [id number]. tel: [phone] Referring Provider: Vicente Mathews, [address] [place] [address] [facility], [place], [address]. tel: [phone] PSYCH DIAGNOSTIC EVALUATION [facility], [address] [place], [place] [address] Drive, [place], [id number], tel:[phone] [facility] Unspecified Mental Disorder Reid Zhang. [address] [facility], [address] [facility], [place], [place], [id number]. [phone] Referring Provider: Vicente Mathews, [address] [facility] [address], [place], [address]. tel:[phone] Family History Family Member Type Diagnosis Age [...] mellit Payers Payer name Insurance type Covered republican ID Authoriza tion(s) No Information Social History Type Description Quantity Date Captured Comments Sex Male Smoking Status No Information Sexual Orientation Straight or heterosexual Gender Identity Male Chief Complaint And Reason For Visit No Information Reason For Referral Reason For Referral No Information Plan Of Treatment Date Type Action Status Goal Tdap. Due on due Goal Depression screening. Due on due Goal Diabetes screening. Due on J due Goal Td vaccine. Due on due Goal Influenza vaccine. Due on Ju due Goal Lifestyle education regardin g diet [...] Influenza vaccine. Due on Ma due Goal Influenza vaccine. Due on Ap [...] Goal Diabetes screening. Due on due Goal Diabetes screening. Due on due Goal Depression screening. Due on due Goal Td vaccine. Due on 19 due Goal Influenza vaccine. Due on due [...] Goal Diabetes screening. Due on due Goal Influenza vaccine. [...] 18 due Goal Influenza vaccine. Due on No [...] Td vaccine. Due on 18 due Goal Lifestyle education regardin g diet [...] 5 mg by mouth every 6 hours, Pateros 5/325 mg every 6 hours, Fioricet 50/325/40 [...]
[2025-07-16 13:00] VITALS: BP 126/84; PULSE 80; RESP 17; TEMP 36.7; O2SAT 99; BMI 26.1
--- OUTSIDE RECORDS SUMMARY | 2025-07-16 13:00 | XMS_ITS | Clinical Summary ---
Author Organization [facility] Address [address] Attn: Epic Prelude ADT TACOS HAAS [id number] Care Team Providers Care Manager Regulatory Name Role Phone Unavailable Primary Care Provider [...] mouth daily. Active naloxone (NARCAN) 4 mg/spray [place], Non-Aerosol EMERGENCY USE ONLY: Administer 1 spray [...] Sex Assigned at Male 10/02/2024 4:08 PM BARGE LOADER Legal Sex Male 3:13 AM BARGE LOADER Gender Identity Male 10/02/2024 4:08 PM BARGE LOADER Sexual Orientation Straight 10/02/2024 4: 08 PM BARGE LOADER Last Filed Vital Signs Vital Sign Reading Time Taken Comments Blood Pressure 135/98 11/24/2024 5:56 PM BARGE LOADER Pulse 72 11/24/2024 5:56 PM BARGE LOADER Temperature 36.4 C (97.5 F) 11/24/2024 5:56 PM BARGE LOADER Respiratory Rate 18 11/24/2024 5:56 PM BARGE LOADER Oxygen Saturation 100% 11/24/2024 5:56 PM BARGE LOADER Inhaled Oxygen Concentration - - Weight 82.2 kg (181 lb 3.2 oz) 11/24/2024 3:39 P M BARGE LOADER Height 167.6 cm (5' 6 ) 11/24/2024 3:39 PM BARGE LOADER Body Mass Index 29.25 11/24/2024 3:39 PM BARGE LOADER Plan of Treatment Health Maintenance Due Date Last Done Comments Pre-Diabetes and Diabetes Screening 1990 DTAP/TDAP/TD VACCINES (5 - Tdap) 04/14/2005 04/13/2005, 02/05/1996, 01/16/1992, Additional history exists HEPATITIS B VACCINES (1 of 3 - 19+ 3-dose series) 2009 HPV VACCINES (1 - 3-dose SCD M series) 2017 INFLUENZA VACCINE (#1) 2025 Advance Directives For more information, please contact: [phone] * Full Code (Latest Code Status on File) Date Activated Date Inactivated Comments 10/02/2024 8:16 PM 10/03/2024 12:11 PM
[2025-07-16 13:39] LABS: Hematocrit 43.7 % (37-53); Hemoglobin 15.10 g/dL (11.27-16.99); Mean Corpuscular HGB Conc 34.6 g/dL (30-55); Mean Corpuscular Hemoglobin 33.0 pg (27-33); Mean Corpuscular Volume 95.6 fl (82-101); Nucleated Red Blood Cells % 0 %; Platelet Count 275 10^3/cmm (157-399); Red Blood Count 4.57 10^6/uL (3.85-5.65); White Blood Count 4.65 10^3/uL (3.29-11.43)
[2025-07-16 13:47] LABS: Add Urine Microscopic? NO
[2025-07-16 13:56] LABS: Alanine Aminotransferase 11 U/L (0-41); Albumin Level 4.5 g/dL (3.5-5.2); Alkaline Phosphatase 62 U/L (40-130); Anion Gap 11.9 (5-19); Aspartate Amino Transferase 16 U/L (0-40); Blood Urea Nitrogen 9 mg/dL (6-20); Calcium 9.2 mg/dL (8.5-10.5); Carbon Dioxide 29 mmol/L (22-29); Chloride 101 mmol/L (98-107); Creatinine Clr Calc Pharmacy 140.9850; Globulin 3.2 g/dL (1.3-4.6); Glucose 79 mg/dL (65-115); Lipase 18 U/L (13-60); Osmolality Calculated 284 mOsm/kg (285-295); Potassium 3.9 mmol/L (3.5-5.1); Sodium 138 mmol/L (136-145); Total Protein 7.7 g/dL (6.6-8.7)
[2025-07-16 14:01] LABS: Glucose Urine UA Negative (Normal); Nitrate Urine Negative (Negative); Specific Gravity, Urine 1.025 (1.005-1.030)
[2025-07-16 14:13] LABS: Slide Review Slide Review Perform
[2025-07-16 14:14] LABS: Charge for UA Resulting for Rev
--- NOTE | 2025-07-16 14:50 | ED_ITS ---
HPI - Abdominal Pain 2 General: Chief Complaint: Abdominal Pain Stated Complaint: abd pain Time Seen by Provider: 07/16/25 13:23 History of Present Illness: 35-year-old male presents emergency room complaining of intermittent abdominal pain. He was seen yesterday CT was unremarkable. He states he has had some dark stools as well. No hematemesis or coffee-ground emesis no john hematochezia. Denies dysuria urgency or frequency. He previously had a umbilical hernia. No other abdominal surgeries. Associated Symptoms: Denies chills, dysuria and fever(s) Related Data Previous Rx's ?Medication ?Instructions ?Recorded pantoprazole 40 mg tablet,delayed See Rx Instructions .Route 07/15/25 release (Protonix) .COMPLEX 4 weeks #28 tabs sucralfate 1 gram tablet (Carafate) 1 g PO TID 2 weeks #42 tabs 07/15/25 Allergies Allergy/AdvReac Type Severity Reaction Status Date / Time cephalexin (From Keflex) Allergy Unknown Verified 07/15/25 13:42 ketorolac (From Toradol) Allergy Unknown Verified 07/15/25 13:42 sumatriptan (From Imitrex) Allergy Unknown Verified 07/15/25 13:42 tramadol Allergy Unknown Verified 07/15/25 13:42 Review of Systems 2 Const: Denies: fever(s) or chills Card: Denies: chest pain Resp: Denies: dyspnea GI: Reports: abdominal pain : Denies: dysuria, urinary frequency or urinary urgency Musc: Denies: neck pain or back pain Skin/Breast: Denies: rash PFSH ED 2 PFSH: Surgical History History of umbilical hernia repair Physical Exam 2 Const: GENERAL APPEARANCE: cooperative ORIENTATION/CONSCIOUSNESS: Yes awake, Yes oriented to person, Yes oriented to place and Yes oriented to time HENMT: COMMON NORMALS: normocephalic, atraumatic and hearing grossly normal bilaterally HEAD & SCALP: normocephalic and atraumatic Resp: COMMON NORMALS: normal respiratory effort, No retractions, No use of accessory muscles and clear to auscultation bilaterally AUSCULTATION: clear to auscultation bilaterally Cardio: COMMON NORMALS: regular rate, regular rhythm and No murmurs present (Cardio) RATE: regular rate RHYTHM: regular rhythm GI: COMMON NORMALS: Soft to palpation and No hepatosplenomegaly present A USCULTATION: Yes normoactive bowel sounds PALPATION: Yes Soft to palpation, No Tenderness to palpation present (GI), No Guarding due to palpation present (GI) and Yes No hepatosplenomegaly present Extremity: COMMON NORMALS: normal to inspection, capillary refill normal, no clubbing, cyanosis or edema, no calf tenderness and no pedal edema Neuro: SENSORIUM/ORIENTATION: Yes oriented to person, Yes oriented to place and Yes oriented to time Skin: COMMON NORMALS: no rashes or lesions noted GENERAL SKIN EXAM: no rashes or lesions noted Course 2 Vital Signs: Vital signs: Vital Signs Temperature 98.1 F 07/16/25 13:00 Pulse Rate 76 07/16/25 15:00 Respiratory Rate 16 07/16/25 15:00 Blood Pressure 119/88 07/16/25 15:00 Pulse Oximetry 100 07/16/25 15:00 Oxygen Delivery Me thod Room Air 07/16/25 15:00 MDM - Abdominal Pain Medical Decision Making Reviewed CT done yesterday there was some enteritis this questionable ileus or early small bowel obstruction. Flat and upright of the abdomen today there is no sign of air-fluid levels. His abdomen is nonspecific he has no acute abdomen on exam no tympany no bloating. White count is normal hemoglobin is stable BUN not elevated. Will discharge patient home clear liquid diet. He does have some retained stool he is describes the pain as being intermittent spasm like suspect this is from peristalsis he may have some mild retained stool. Will discharge patient home we can use [id number] laxatives. Continue the PPI as prescribed previously. Medical Records I reviewed the patient's medical records. Lab Data I reviewed the patient's lab results. 07/16/25 13:32 07/16/25 13:32 Labs/Radiology: Radiology Impressions Chest/Abdomen X-ray 07/16/25 14:51 IMPRESSION: No acute abdominal abnormality identified. Laboratory Results WBC 4.65 10^3/uL (3.29-11.43) 07/16/25 13:32 RBC 4.57 10^6/uL (3.85-5.65) 07/16/25 13:32 Hgb 15.10 g/dL (11.27-16.99) 07/16/25 13:32 Hct 43.7 % (37-53) 07/16/25 13:32 MCV 95.6 fl (82-101) 07/16/25 13:32 MCH 33.0 pg (27-33) 07/16/25 13:32 MCHC 34.6 g/dL (30-55) 07/16/25 13:32 RDW 12.2 % (12.1-15.1) 07/16/25 13:32 Plt Count 275 10^3/cmm (157-399) 07/16/25 13:32 MPV 8.0 fL (7.4-10.4) 07/16/25 13:32 Neut % (Auto) 55.1 % 07/16/25 13:32 Lymph % (Auto) 32.4 % 07/16/25 13:32 [place] % (Auto) 10.2 % 07/16/25 13:32 Eos % (Auto) 1.3 % 07/16/25 13:32 Baso % (Auto) 0.6 % 07/16/25 13:32 Neut # (Auto) 2.56 10^3/uL (1.8-7.7) 07/16/25 13:32 Lymph # (Auto) 1.3 10^3/uL (0.8-4.8) 07/16/25 13:32 [place] # (Auto) 0.7 10^3/uL (0.2-0.9) 07/16/25 13:32 Eos # (Auto) 0.1 10^3/uL (0.0-0.8) 07/16/25 13:32 Baso # (Auto) 0.0 10^3/uL (0.0-0.1) 07/16/25 13:32 Nucleated RBC % (auto) 0 % 07/16/25 13:32 Nucleated RBCs # 0.0 /100WBC 07/16/25 13:32 Sodium 138 mmol/L (136-145) 07/16/25 13:32 Potassium 3.9 mmol/L (3.5-5.1) 07/16/25 13:32 Chloride 101 mmol/L (98-107) 07/16/25 13:32 Carbon Dioxide 29 mmol/L (22-29) 07/16/25 13:32 Anion Gap 11.9 (5-19) 07/16/25 13:32 BUN 9 mg/dL (6-20) 07/16/25 13:32 Creatinine 0.7 mg/dL (0.7-1.2) 07/16/25 13:32 GFR Calculation 128.3 mL/min (90-130) 07/16/25 13:32 Glucose 79 mg/dL (65-115) 07/16/25 13:32 Calculated Osmolality 284 mOsm/kg (285-295) L 07/16/25 13:32 Calcium 9.2 mg/dL (8.5-10.5) 07/16/25 13:32 Total Bilirubin 0.4 mg/dL (0.15-1.2) 07/16/25 13:32 AST 16 U/L (0-40) 07/16/25 13:32 ALT 11 U/L (0-41) 07/16/25 13:32 Alkaline Phosphatase 62 U/L (40-130) 07/16/25 13:32 Total Protein 7.7 g/dL (6.6-8.7) 07/16/25 13:32 Albumin 4.5 g/dL (3.5-5.2) 07/16/25 13:32 Globulin 3.2 g/dL (1.3-4.6) 07/16/25 13:32 Lipase 18 U/L (13-60) 07/16/25 13:32 Urine Color Yellow (Yellow) 07/16/25 13:41 Urine Appearance Clear (CLEAR) 07/16/25 13:41 Urine pH 5.5 (5-7) 07/16/25 13:41 Ur Specific [place] 1.025 (1.005-1.030) 07/16/25 13:41 Urine Protein Negative (Negative) 07/16/25 13:41 Urine Glucose (UA) Negative (Normal) 07/16/25 13:41 Urine Ketones Trace (Negative) 07/16/25 13:41 Urine Blood Negative (Negative) 07/16/25 13:41 Urine Nitrate Negative (Negative) 07/16/25 13:41 Urine Bilirubin Negative (Negative) 07/16/25 13:41 Urine Urobilinogen 1.0 mg/dL (Negative) 07/16/25 13:41 Ur Leukocyte Esterase Negative (Negative) 07/16/25 13:41 Amorphous Sediment Not Reportable 07/16/25 13:41 All radiology interpretation(s) finalized by discharge Discharge Plan Discharge Patient Disposition: Home Clinical Impression: Abdominal pain Condition: Stable Prescriptions: No Action sucralfate [Carafate] 1 gram tablet 1 g PO TID 14 Days Qty: 42 0RF pantoprazole [Protonix] 40 mg tablet,delayed release (DR/EC) See Rx Instructions .ROUTE .COMPLEX 28 Days Qty: 28 0RF Rx Instructions: Take 1 tablet by mouth twice daily for 7 days then 1 tablet daily thereafter. Discharge Orders: Discharge ED (Routine); Ordered 07/16/25 Ordered By: Tian Holloway Referrals: Charlene Capellan MD [Primary Care Provider] Discharge Diet: Clear Liquid Discharge Activity: Increase activity as tolerated Patient Instructions: Abdominal Pain (ED), Opioid Safety, Pain Management, Patient Portal & Britney Instructions Activity Restrictions/Additional Instructions: Thank you for choosing [facility] for your healthcare needs today. It is very important that you follow up as instructed or that you return to the Emergency Department should you have concerns or if your condition changes or worsens in any way. Emergency department visits are focused on emergent conditions, in some cases you may require further evaluation on an outpatient basis. You were seen in the emergency room with complaints of abdominal pain. You were seen in the emergency room with complaints of abdominal pain. You have been seen yesterday the CT from yesterday was reviewed. Repeat abdominal films today did not show any sign of bowel obstruction your white count electrolytes liver function kidney functions were all normal. There is a moderate amount of retained stool. Given the character of your pain with that being intermittent suspect some of this may be result of some retained stool you can try some [id number] laxatives to relieve this. (Please note that included in your discharge packet is information concerning opioid safety and pain management. This information is given to all patients were discharged from the ER regardless of their discharge diagnosis or the medicines they usually take or are prescribed.) Print Language: Yi Coding Level of Care Code ED Route Sales Delivery Driver for Marguerite Arreaga
--- NOTE | 2025-07-16 14:51 | XR_ITS ---
WS: [id number] XR acute abdomen series [id number] REASON FOR EXAM: abd pain FINDINGS: No free air or retroperitoneal air. Bowel gas pattern is unremarkable. No organomegaly or mass is identified. Lumbar spine and bony pelvis are intact without significant focal abnormality. XR/XR acute abdomen series [id number] IMPRESSION: No acute abdominal abnormality identified.
[2025-07-16 15:00] VITALS: BP 119/88; PULSE 76; RESP 16; O2SAT 100
[2025-07-16 16:42] VITALS: BP 112/78; PULSE 58; O2SAT 100
== END 2025-07-16 16:44 | disposition home or self-care (01) ==
PROVIDERS: Physician Assistant; Emergency Provider Family Medicine; PCP Nurse Practitioner Family
DX: R10.9 Unspecified abdominal pain (principal)
CPT/HCPCS: 36415; 74022; 80053; 81003; 83690; 85025; 99284

== ENCOUNTER 2025-10-09 10:52 | Emergency (ER) | payer SELFPAY ==
--- OUTSIDE RECORDS SUMMARY | 2020-06-21 05:40 | XMS_ITS | Continuity of Care Document ---
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 Role Phone Costatim MATHEW Latosha Unavailable Unavailable Allergies, Adverse Reactions, Alerts Substance Reaction Status Criticality QUETIAPINE FUMARATE Active No Infor mation SUMATRIPTAN SUCCINATE Active No Inf ormation sumatriptan Active No Information tramadol Active No Information KETOROLAC TROMETHAMINE Active No In formation ibuprofen Active No Information CEPHALEXIN MONOHYDRATE Active No In formation Medications Medication Instructions Dosage Effective Dates (start - stop) Status Comments Ativan 1 mg tablet take 1 tablet by ora l route every day as needed for Anxiety 1 MG - Active Viibryd 20 mg tablet take 1 tablet by or al route every day with food 20 MG - Active Procedures Procedure Date No Treatment Completed OFFICE/OUTPATIENT VISIT, EST Naltrexone, depot form Patient Med THER/PROPH/DIAG INJ, SC/IM PSYCH DIAGNOSTIC EVALUATION Completion Of The DLA-20 Assessment Naltrexone, depot form Patient Med THER/PROPH/DIAG INJ, SC/IM Naltrexone, depot form Patient Med THER/PROPH/DIAG INJ, SC/IM OFFICE/OUTPATIENT VISIT, EST Naltrexone, depot form Patient Med THER/PROPH/DIAG INJ, SC/IM Naltrexone, depot form Patient Med THER/PROPH/DIAG INJ, SC/IM Naltrexone, depot form Patient Med THER/PROPH/DIAG INJ, SC/IM Naltrexone, depot form Patient Med THER/PROPH/DIAG INJ, SC/IM Naltrexone, depot form Patient Med THER/PROPH/DIAG INJ, SC/IM OFFICE/OUTPATIENT VISIT, EST OFFICE/OUTPATIENT VISIT, EST Follow Up PHQ2 Screening PSYTX PT&/FAMILY 60 MINUTES Limited Evaluation Intraoral Periapical Each Additional Aug Intraoral Periapical Each Additional Aug Local Anesthesia Surgical Removal Of Erupted Tooth Requir ing Elevat PSYTX PT&/FAMILY 60 MINUTES OFFICE/OUTPATIENT VISIT EST Telehealth O OFFICE/OUTPATIENT VISIT EST Telehealth J OFFICE/OUTPATIENT VISIT, EST OFFICE/OUTPATIENT VISIT, EST PSYCH DIAGNOSTIC EVALUATION Clinic service PSYCH DIAG EVAL W/MED SRVCS PSYCH DIAGNOSTIC EVALUATION PSYCH DIAGNOSTIC EVALUATION Clinic service Advance Directives Directive Yes / No Effective Date File Name No Information Encounters Encounter Description Practice Location Reason(s) For Visit Diagnoses Date Provider Providers Copied on Encounter [facility], [address] [facility] [place], [id number], [place] tel:[phone] [facility] [place] Encounter for dental exam and cleaning w/o abnormal findings Myriam Reina. [address], [id number] [place], [id number], [place]. tel:[phone] Referring Provider: Latosha Costa, [address] [id number] [place], [address]. tel:[phone] OFFICE/OUTPA TIENT VISIT, EST [facility], [address], [place], [id number], [place] tel:[phone] [facility] Severe alcohol use disorderBody mass index (BMI) 25.0-25.9, adultPost-tr aumatic stress disorder, chronicBipol ar disorder 0 Kt Víctor. [address], [id number] [place], [id number], [place]. tel:[phone] Referring Provider: Víctor Meraz, [address] [id number] [place], [address]. tel:[phone] [facility], [address], [place], [id number], [place] tel:[phone] [facility] Severe alcohol use disorder 0 Kt Víctor. [address], [id number] [place], [id number], [place]. tel:[phone] Referring Provider: Víctor Meraz, [address] [id number] [place], [address]. tel:[phone] PSYCH DIAGNOSTIC EVALUATION [facility], [address], [place], [id number], [place] tel:[phone] [facility] Severe alcohol use disorder 0 Oliver Little. [address], [place], [id number], [place]. tel:[phone] Referring Provider: Anabel Boyd, [address], [place], [address]. tel:[phone] [facility], [address], [place], [id number], [place] tel:[phone] [facility] Severe alcohol use disorder 0 Mcduffierigo Renee. [address], [id number] 0, [place], [id number], [place]. tel:[phone] Referring Provider: Víctor Meraz, [address] [id number] [place], [address]. tel:[phone] [facility], [address], [place], [id number], [place] tel:[phone] [facility] Severe alcohol use disorder 0 Mcduffierigo Renee. [address], [id number] 0, [place], [id number], [place]. tel:[phone] Referring Provider: Víctor Meraz, [address] [id number] [place], [address]. tel:[phone] OFFICE/OUTPA TIENT VISIT, EST [facility], [address], [place], [id number], [place] tel:[phone] [facility] Body mass index (BMI) 26.0-26.9, adultSevere alcohol use disorderPost -traumatic stress disorder, chronicBipol ar disorderPani c disorder w/ agoraphobia 0 Kt Renee. [address], [id number] 0, [place], [id number], [place]. tel:[phone] Referring Provider: Víctor Meraz, [address] [id number] [place], [address]. tel:[phone] [facility], [address], [place], [id number], [place] tel:[phone] [facility] Severe alcohol use disorder 0 Mcduffiemalissa Renee. [address], [id number] 0, [place], [id number], [place]. tel:[phone] Referring Provider: Víctor Meraz, [address] [id number] [place], [address]. tel:[phone] [facility], [address], [place], [id number], [place] tel:[phone] [facility] Severe alcohol use disorder Sep-3 9 Kt Renee. [address], [id number] [place], [id number], [place]. tel:[phone] Referring Provider: Víctor Meraz, [address] [id number] [place], [address]. tel:[phone] [facility], [address], [place], [id number], [place] tel:[phone] [facility] Severe alcohol use disorder 9 Kt Renee. [address], [id number] 0, [place], [id number], [place]. tel:[phone] [facility], [address], [place], [id number], [place] tel:[phone] [facility] Severe alcohol use disorder 9 Kt Renee. [address], [id number] [place], [id number], [place]. tel:[phone] Referring Provider: Víctor Meraz, [address] [id number] [place], [address]. tel:[phone] OFFICE/OUTPA TIENT VISIT, EST [facility], [address], [place], [id number], [place] tel:[phone] [facility] Body mass index (BMI) 31.0-31.9, adultPost-tr aumatic stress disorder, chronicSever e alcohol use disorder 0 9 Kt Renee. [address], [id number] 0CH, [place], [id number], [place]. tel:[phone] Referring Provider: Víctor Kt, [address] [id number] [place], [address]. tel:[phone] [facility], [address], [place], [id number], [place] tel:[phone] [facility] Post-traumat ic stress disorder, chronic 9 Javon Hodge. [address], [place], [id number], [place]. tel:[phone] OFFICE/OUTPA TIENT VISIT, EST [facility], [address], [place], [id number], [place] tel:[phone] [facility] Bipolar disorderPost -traumatic stress disorder, chronicPanic Disorder 8 Kt Víctor. [address], [id number] [facility] [place] [place], [id number], [place]. tel:[phone] Referring Provider: Víctor Kt, [address] [id number] [place], [address]. tel:[phone] [facility], [address], [place], [id number], [place] tel:[phone] [facility] Encounter for dental exam and cleaning w/o abnormal findings 8 Paloma Esteban. [address], [id number] [facility] [place], [id number], [place]. tel:[phone] Referring Provider: Eulalia Dow, [address] [id number] [place], [address]. tel:[phone] PSYTX PT&/FAMILY 60 MINUTES [facility], [address], [place], [id number], [place] tel:[phone] [facility] Posttraumati c Stress Disorder (includes Posttraumati c Stress Disorder for Children 6 Years and Younger)Impu lse control disorderAlco hol use disorder, moderateProb lems in relationship with spouse 8 Javon Hodge. [address], [place], [id number], [place]. tel:[phone] Referring Provider: Ayesha Alejandro, [address] [place], [address]. tel:[phone] [facility], [address], [place], [id number], [place] tel:[phone] [facility] Dental Encounter for dental exam and cleaning w/o abnormal findings 8 Paloma Esteban. [address], [id number] [place], [id number], [place]. tel:[phone] Referring Provider: Eulalia Dow, [address] [id number] [place], [address]. tel:[phone] PSYTX PT&/FAMILY 60 MINUTES [facility], [address], [place], [id number], [place] tel:[phone] [facility] Posttraumati c Stress Disorder (includes Posttraumati c Stress Disorder for Children 6 Years and Younger)Impu lse control disorderAlco hol use disorder, moderateProb lems in relationship with spouse 8 Javon Hodge. [address], [id number], [place]. tel:[phone] Referring Provider: Ayesha Alejandro, [address] [place], [address]. tel:[phone] OFFICE/OUTPA TIENT VISIT EST Telehealth [facility], [address] [place], [id number], [place] tel:[phone] [facility] Record Review (chief complaint) Post-traumat ic stress disorderAgor aphobia with panic disorderOthe r bipolar disorder 8 Major Ojeda. [address] [place] [address] 212, [id number] [place], [id number], [place]. tel:[phone] Referring Provider: Rusty Gonsalves, [address] [place] [address] [id number] [place], [address]. tel: [phone] OFFICE/OUTPA TIENT VISIT EST Telehealth [facility], [address], [place], [place], [id number], [place] tel:[phone] [facility] Post-traumat ic stress disorderAgor aphobia with panic disorderOthe r bipolar disorder Apr- 8 Major Ojeda. [address] [place] [address] [address], [id number] 0, [place], [place], [id number], [place]. tel: [phone] Referring Provider: Rusty Gonsalves, [address] [place] [address] [id number] [place], [address]. tel: [phone] OFFICE/OUTPA TIENT VISIT, EST [facility], [address], [place], [place], [id number], [place] tel:[phone] [facility] Post-traumat ic stress disorderAgor aphobia with panic disorderOthe r bipolar disorder 8 Major Ojeda. [address] [place] [address] [address], [id number] 0, [place], [place], [id number], [place]. [phone] Referring Provider: Rusty Gonsalves, [address] [place] [address] 212 [id number] [place], [address]. tel: [phone] OFFICE/OUTPA TIENT VISIT, EST [facility], [address], [place], [place], [id number], [place] tel:[phone] [facility] New Patient (chief complaint) Body mass index (BMI) 24.0-24.9, adultHeadach eEncounter for adult health check-upPain in left wrist Nov-0 8 Chris Perdomo. [address], [id number] 0CH, [place], [place], [id number], [place]. [phone] Referring Provider: Conor Perez, [address] [id number] [facility] [place], [address]. tel:[phone] PSYCH DIAGNOSTIC EVALUATION [facility], [facility] [facility] [address], [place], [id number], [place] tel:[phone] [facility] Bipolar disorder, current episode manic w/o psychotic features, moderatePost -traumatic stress disorderCann abis use disorder, severe Fe-0 8 Reid Zhang. [address] [place] [address], Suite [facility], [place], [place], [id number]. tel: [phone] Referring Provider: Vicente Mathews, [address] [place] [address], [place], [address]. tel: [phone] PSYCH DIAG EVAL W/MED SRVCS [facility], [address] [place] [address], [place], [id number], [place] tel:[phone] [facility] Body mass index (BMI) 24.0-24.9, adultPost-tr aumatic stress disorderAgor aphobia with panic disorderOthe r bipolar disorder 8 Major Ojeda. [address] [place] [address], [id number] [address] [place] [address], [id number], . tel: [phone] Referring Provider: Rusty Gonsalves, [address] [place] [address] [id number] [place], [address]. tel: [phone] PSYCH DIAGNOSTIC EVALUATION [facility], [address] [place] [address] ns [facility], [place], [id number], [place] tel:[phone] [facility] Unspecified Mental Disorder 8 Reid Zhang. [address] [place] [address], [place] [address], [place], [id number]. tel: [phone] Referring Provider: Vicente Mathews, [address] [place] [address], [place], [address]. tel: [phone] PSYCH DIAGNOSTIC EVALUATION [facility], [address] [place], [place] [address] ns [place], [place], [id number], tel:[phone] [facility] Unspecified Mental Disorder [address] [facility], [address] [facility], [place], [place], [id number]. tel:[phone] Referring Provider: Vicente Mathews, [address] [facility] [address], [place], [address]. tel:[phone] Family History Family Member Type Diagnosis Age At Onset Problem (finding) Family history of anxie ty state Maternal aunt Problem (finding) breast cancer Problem (finding) Family history of manic-depressive state Father Problem (finding) hypertension Father Problem (finding) chest wall can cer (Cause Of ) Father Problem (finding) anxiety state Problem (finding) Family history of depre ssion Paternal grandfather Problem (finding) Diabetes mellit Payers Payer name Insurance type Covered libertarian ID Authoriza tion(s) No Information Social History Type Description Quantity Date Captured Comments Sex Male Smoking Status No Information Sexual Orientation Straight or heterosexual Gender Identity Male Chief Complaint And Reason For Visit No Information Reason For Referral Reason For Referral No Information Plan Of Treatment Date Type Action Status Goal Influenza vaccine. Due on due Goal Tdap. Due on due Goal Td vaccine. Due on due Goal Diabetes screening. Due on due Goal Depression screening. Due on due Goal Lifestyle education regardin g diet completed Goal Depression screening. Due on due Goal Td vaccine. Due on due Goal Diabetes screening. Due on due Goal Tdap. Due on due Goal Influenza vaccine. Due on due Goal Td vaccine. Due on due Goal Depression screening. Due on due Goal Diabetes screening. Due on due Goal Tdap. Due on due Goal Influenza vaccine. Due on Ma due Goal Td vaccine. Due on due Goal Tdap. Due on due Goal Influenza vaccine. Due on Ap due Goal Diabetes screening. Due on A due Goal Depression screening. Due on due Goal Td vaccine. Due on due Goal Influenza vaccine. Due on Ma due Goal Tdap. Due on due Goal Depression screening. Due on due Goal Diabetes screening. Due on M due Goal Diabetes screening. Due on due Goal Td vaccine. Due on due Goal Tdap. Due on due Goal Influenza vaccine. Due on due Goal Depression screening. Due on due Goal Lifestyle education regardin g diet completed Goal Influenza vaccine. Due on due Goal Td vaccine. Due on due Goal Depression screening. Due on due Goal Diabetes screening. Due on due Goal Tdap. Due on due Goal Tdap. Due on due Goal Depression screening. Due on due Goal Diabetes screening. Due on due Goal Td vaccine. Due on due Goal Influenza vaccine. Due on due Goal Influenza vaccine. Due on due Goal Tdap. Due on due Goal Td vaccine. Due on due Goal Diabetes screening. Due on D due Goal Depression screening. Due on due Goal Diabetes screening. Due on N due Goal Tdap. Due on due Goal Td vaccine. Due on due Goal Influenza vaccine. Due on No due Goal Depression screening. Due on due Goal Influenza vaccine. Due on No due Goal Diabetes screening. Due on N due Goal Tdap. Due on due Goal Depression screening. Due on due Goal Td vaccine. Due on due Goal Lifestyle education regardin g diet completed Goal Tdap. Due on due Goal Influenza vaccine. Due on due Goal Depression screening. Due on due Goal Td vaccine. Due on due Goal Td vaccine. Due on due Goal Depression screening. Due on due Goal Influenza vaccine. Due on due Goal Tdap. Due on due Goal Tdap. Due on due Goal Influenza vaccine. Due on No due Goal Depression screening. Due on due Goal Td vaccine. Due on due Goal Tdap. Due on due Goal Influenza vaccine. Due on due Goal Depression screening. Due on due Goal Td vaccine. Due on due Goal Tdap. Due on due Goal Td vaccine. Due on due Goal Depression screening. Due on due Goal Influenza vaccine. Due on due Goal Depression screening. Due on due Goal Td vaccine. Due on due Goal Tdap. Due on due Goal Influenza vaccine. Due on due Goal Tdap. Due on due Goal Influenza vaccine. Due on due Goal Depression screening. Due on due Goal Td vaccine. Due on due Goal Td vaccine. Due on due Goal Depression screening. Due on due Goal Tdap. Due on due Goal Influenza vaccine. Due on due Goal Tdap. Due on due Goal Influenza vaccine. Due on due Goal Depression screening. Due on due Goal Td vaccine. Due on due Goal Td vaccine. Due on due Goal Depression screening. Due on due Goal Tdap. Due on due Goal Influenza vaccine. Due on due Goal Lifestyle education regardin g diet completed Goal Td vaccine. Due on 18 due Goal Influenza vaccine. Due on due Goal Tdap. Due on due Goal Depression screening. Due on due Goal Td vaccine. Due on 18 due Goal Depression screening. Due on due Goal Tdap. Due on due Goal Influenza vaccine. Due on due History Of Present Illness Encounter Date Complaint History Of Prese nt Illness Record Review Review from bhavik rds from emergency department at [facility]. Patient was in the hospital on August 09, 2018 for tooth fracture. He is on numerous medications which she has not told this office about. Currently taking penicillin 500 mg 1 by mouth 4 times a day, oxycodone 5 mg by mouth every 6 hours, [place] 5/325 mg every 6 hours, Fioricet 50/325/40 one capsule by mouth 3 times a day when necessary cyclobenzaprine 10 mg by mouth every 6 hours when necessary and Inderal 20 mg by mouth 3 times a day. He is directed to take oxycodone pills along as prescribed and to have a follow-up with [facility]. According to his chart there is a history of alcohol abuse and methamphetamine abuse. New Patient The location is head. New patient is here today for migraine & R side sciatic nerve/L wrist.Left wrist pain started about 2 days ago. Hurting all the time. Takes Fioricet for migraines and it hasn't helped.Provider notes: Patient presents as a new patient today interested in getting established here with complains of chronic migraines as well as pain in his left wrist. Functional Status Date Functional Assessmen t No Information Instructions Date Instruction Additional Infor leonel Lifestyle education regarding di et Related to Body mass index (BMI) 25.0-25.9, adult Giving encouragement to exercise Related to Body mass index (BMI) 25.0-25.9, adult Giving encouragement to exercise Related to Body mass index (BMI) 26.0-26.9, adult Lifestyle education regarding di et Related to Body mass index (BMI) 26.0-26.9, adult Giving encouragement to exercise Related to Body mass index (BMI) 31.0-31.9, adult Lifestyle education regarding di et Related to Body mass index (BMI) 31.0-31.9, adult Giving encouragement to exercise Related to Body mass index (BMI) 24.0-24.9, adult Dietary needs education Related to Body mass index (BMI) 24.0-24.9, adult Lifestyle education regarding di et Related to Body mass index (BMI) 24.0-24.9, adult Giving encouragement to exercise Related to Body mass index (BMI) 24.0-24.9, adult Assessments Type Assessment Date No Information Patient Care Teams Name Effective Dates (start - stop) Status Members No Information
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
[2025-10-09 10:56] VITALS: BP 128/79; PULSE 62; RESP 17; TEMP 36.3; O2SAT 95; BMI 26.6
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
--- OUTSIDE RECORDS SUMMARY | 2025-10-09 11:01 | XMS_ITS | Encounter Summary ---
Author Organization [facility] Address [address] [place] [address] Care Team Providers Care Chaplaincy Name Role Phone Unavailable Primary Care Provider Unavailabl e Encounter Details Date Type Department Care Team (Late st Contact Info) Description 10/02/2025 External Device Data ST[facility] ABSTRACTION Provider, Abstract NO ADDRESS ON FILE Social History Tobacco Use Types Packs/Day Years [...] Sex Assigned at Male 10/02/2024 4:08 PM CAKE ICER Legal Sex Male 3:13 AM CAKE ICER Gender Identity Male 10/02/2024 4:08 PM CAKE ICER Sexual Orientation Straight 10/02/2024 4: 08 PM CAKE ICER documented as of this encounter Plan of Treatment Not on file documented as of this encounter Visit Diagnoses Not on filedocumented in this encounter
--- OUTSIDE RECORDS SUMMARY | 2025-10-09 11:01 | XMS_ITS | Encounter Summary ---
Author Organization [facility] Address [address] Fernandez: Epic Prelude ADT [place] [address] Care Team Providers Care Wire Repairer Name Role Phone Unavailable Primary Care Provider Unavailabl e Encounter Details Date Type Department Care Team (Latest Contact Info) Description 10/07/2025 Travel Social History Tobacco Use Types Packs/Day Years Used Date Smoking Tobacco: Never Assessed Feeling Safe Answer Date Recorded Are you [...] Sex Assigned at Male 10/02/2024 4:08 PM [employer] NOT[employer] DEVELOPER Legal Sex Male 3:13 AM LOTUS NOTES DEVELOPER Gender Identity Male 10/02/2024 4:08 PM [employer] NOT[employer] DEVELOPER Sexual Orientation Straight 10/02/2024 4: 08 PM LOTUS NOTES DEVELOPER documented as of this encounter Plan of Treatment Not on file documented as of this encounter Visit Diagnoses Not on filedocumented in this encounter
[2025-10-09 12:32] LABS: Hematocrit 44.2 % (37-53); Hemoglobin 15.50 g/dL (11.27-16.99); Mean Corpuscular HGB Conc 35.1 g/dL (30-55); Mean Corpuscular Hemoglobin 33.3 pg (27-33); Mean Corpuscular Volume 95.1 fl (82-101); Nucleated Red Blood Cells % 0 %; Platelet Count 341 10^3/cmm (157-399); Red Blood Count 4.65 10^6/uL (3.85-5.65); White Blood Count 8.83 10^3/uL (3.29-11.43)
[2025-10-09 12:51] LABS: Alanine Aminotransferase 15 U/L (0-41); Albumin Level 4.9 g/dL (3.5-5.2); Alkaline Phosphatase 61 U/L (40-130); Anion Gap 11.7 (5-19); Aspartate Amino Transferase 22 U/L (0-40); Blood Urea Nitrogen 13 mg/dL (6-20); Calcium 9.7 mg/dL (8.5-10.5); Carbon Dioxide 30 mmol/L (22-29); Chloride 101 mmol/L (98-107); Globulin 2.7 g/dL (1.3-4.6); Glucose 93 mg/dL (65-115); Osmolality Calculated 286 mOsm/kg (285-295); Potassium 4.7 mmol/L (3.5-5.1); Sodium 138 mmol/L (136-145); Total Protein 7.6 g/dL (6.6-8.7)
[2025-10-09 13:33] VITALS: BP 124/81; PULSE 52; RESP 16; O2SAT 99
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
[2025-10-09 14:00] VITALS: BP 111/84; PULSE 58; RESP 16; O2SAT 100
[2025-10-09] MEDS: ondansetron 2 mg/ML SDV 2 mL 4 MG IVP (14:05)
[2025-10-09] MEDS: orphenadrine 30 mg/mL Inj 2 mL 60 MG IVP (14:05)
[2025-10-09] MEDS: morphine 4 mg/mL SDV 1 mL IVP (14:05)
[2025-10-09 14:10] LABS: Glucose Urine UA Negative (Normal); Nitrate Urine Negative (Negative); Specific Gravity, Urine 1.012 (1.005-1.030)
[2025-10-09 14:15] LABS: Add Urine Microscopic? YES
[2025-10-09 15:14] VITALS: BP 120/72; PULSE 54; RESP 16; O2SAT 99
== END 2025-10-09 15:13 | disposition home or self-care (01) ==
PROVIDERS: Emergency Provider Family Medicine; PCP Nurse Practitioner Family
DX: S13.4XXA Sprain of ligaments of cervical spine, initial encounter (principal); R51.9 Headache, unspecified; M79.10 Myalgia, unspecified site; R10.9 Unspecified abdominal pain; V89.2XXA Person injured in unspecified motor-vehicle accident, traffic, initial encounter
CPT/HCPCS: 36415; 80053; 81001; 85025; 96361; 96374; 96375; 99284; J2270; J2360; J2405; J7030